=== PATIENT | female | born 1980 | race Caucasian/White ===

== ENCOUNTER → 2020-02-23 07:17 | Outpatient (CLI) | payer OTHER, SELFPAY ==
--- NOTE | 2020-02-23 07:18 | DI.US.S_ITS ---
PROCEDURE: US THYROID INDICATIONS: ENLARGED THYROID TECHNIQUE: Real-time scanning was performed of the thyroid gland, with image documentation. COMPARISON: None. FINDINGS: Right: Thyroid lobe measures 5.7 x 1.7 x 1.6 cm, and is homogeneous in echotexture. Left: Thyroid lobe measures 5.5 x 1.5 x 1.4 cm, and is homogenous in echotexture. Isthmus: 2 mm thick. No hyperemia. Nodule number: 1 Location: Left superior Size: 0.6 x 0.6 x 0.5 cm. Composition: Solid Echogenicity: Hypoechoic Shape: wider than tall. Margins: Smooth Echogenic foci: None Total points: 4 ACR TI-RADS category: TR4, moderately suspicious. Nodule number: 2 Location: Right superior posteriorly Size: 0.8 x 0.7 x 0.6 cm. Composition: Solid Echogenicity: Hypoechoic Shape: wider than tall. Margins: Smooth Echogenic foci: None Total points: 4 ACR TI-RADS category: TR4, moderately suspicious. Nodule number: 3 Location: Right superior anteriorly Size: 0.6 x 0.5 x 0.3 cm. Composition: Solid Echogenicity: Hypoechoic Shape: wider than tall. Margins: Smooth Echogenic foci: None Total points: 4 ACR TI-RADS category: TR4, moderately suspicious. IMPRESSION: Thyroid gland appears to be within normal limits in size. A few small thyroid nodules not meeting criteria for follow-up ultrasound or FNA. ACR TI-RADS definitions and recommendations: TI-RADS 1 (benign): 0 points. FNA not needed. TI-RADS 2 (not suspicious): 2 points. FNA not needed. TI-RADS 3 (mildly suspicious): 3 points. * FNA if 2.5 cm or larger, follow up if 1.5 cm or larger (at 1, 3, and 5 years). TI-RADS 4 (moderately suspicious): 4-6 points. * FNA if 1.5 cm or larger, follow up if 1 cm or larger (at 1, 2, 3, and 5 years). TI-RADS 5 (highly suspicious): 7 points or more. * FNA if 1 cm or larger, follow up if 0.5 cm or larger (every year for 5 years). Dictated by: Aquilino Benavides M.D. on 02/23/2020 at 9:44 Approved by: Aquilino Benavides M.D. on 02/23/2020 at 9:49
== END ==
PROVIDERS: Family Provider Family Medicine; PCP Registered Nurse; Referring Provider Registered Nurse; Visit Provider Registered Nurse
DX: E04.2 Nontoxic multinodular goiter (principal)
CPT/HCPCS: 76536

== ENCOUNTER → 2020-02-27 10:16 | Outpatient (CLI) | payer OTHER, SELFPAY ==
--- NOTE | 2020-02-27 10:17 | DI.MG.S_ITS ---
BILATERAL DIGITAL SCREENING MAMMOGRAM 3D/2D WITH CAD: 02/27/2020 CLINICAL: Routine screening. Comparison is made to exams dated: 10/31/2018 mammogram and 11/27/2018 mammogram - outside location. The tissue of both breasts is heterogeneously dense. This may lower the sensitivity of mammography. Current study was also evaluated with a Computer Aided Detection (CAD) system. No significant masses, calcifications, or other findings are seen in either breast. There has been no significant interval change. IMPRESSION: NEGATIVE There is no mammographic evidence of malignancy. A 1 year screening mammogram is recommended. This exam was interpreted at Station ID: [id number]. NOTE: For mammograms, a report in lay terms will be sent to the patient. Approximately 15% of breast malignancies will not be visualized mammographically. In the management of a palpable breast mass, a negative mammogram must not discourage biopsy of a clinically suspicious lesion. Electronically Signed By: Chad ibarra/nikos:02/29/2020 09:55:47 letter sent: Normal Exam ACR BI-RADS Category 1: Negative 3341F
== END ==
PROVIDERS: Family Provider Family Medicine; PCP Registered Nurse; Referring Provider Registered Nurse; Visit Provider Registered Nurse
DX: Z12.31 Encounter for screening mammogram for malignant neoplasm of breast (principal)
CPT/HCPCS: 77063; 77067

== ENCOUNTER → 2020-08-05 11:37 | Outpatient (CLI) | payer OTHER, SELFPAY ==
[2020-08-05] MEDS: COVID-19 VACC #1, MRNA(MOD) 100 MCG/0.5 ML VIAL IM (11:44)
== END ==
PROVIDERS: PCP Registered Nurse; Visit Provider Internal Medicine
DX: Z23 Encounter for immunization (principal)
CPT/HCPCS: 0011A; 91301

== ENCOUNTER → 2020-09-02 10:33 | Outpatient (CLI) | payer OTHER, SELFPAY ==
[2020-09-02] MEDS: COVID-19 VACC #2, MRNA(MOD) 100 MCG/0.5 ML VIAL IM (10:41)
== END ==
PROVIDERS: PCP Registered Nurse; Visit Provider Internal Medicine
DX: Z23 Encounter for immunization (principal)
CPT/HCPCS: 0012A; 91301

== ENCOUNTER → 2021-03-24 12:28 | Outpatient (CLI) | payer OTHER, SELFPAY ==
--- NOTE | 2021-03-24 | DI.MG.S_ITS ---
BILATERAL DIGITAL SCREENING MAMMOGRAM 3D/2D WITH CAD: 03/24/2021 CLINICAL: Routine screening. Comparison is made to exams dated: 02/27/2020 mammogram - [facility], 11/27/2018 mammogram, 11/27/2018 ultrasound, and 10/31/2018 mammogram - outside location. The tissue of both breasts is heterogeneously dense. This may lower the sensitivity of mammography. Current study was also evaluated with a Computer Aided Detection (CAD) system. No significant masses, calcifications, or other findings are seen in either breast. There has been no significant interval change. IMPRESSION: NEGATIVE There is no mammographic evidence of malignancy. A 1 year screening mammogram is recommended. This exam was interpreted at Station ID: [id number]. NOTE: For mammograms, a report in lay terms will be sent to the patient. Approximately 15% of breast malignancies will not be visualized mammographically. In the management of a palpable breast mass, a negative mammogram must not discourage biopsy of a clinically suspicious lesion. Electronically Signed By: Addis upton/nikos:03/24/2021 13:28:15 letter sent: Normal Exam ACR BI-RADS Category 1: Negative 3341F
== END ==
PROVIDERS: PCP Registered Nurse; Referring Provider Registered Nurse; Visit Provider Registered Nurse
DX: Z12.31 Encounter for screening mammogram for malignant neoplasm of breast (principal)
CPT/HCPCS: 77063; 77067

== ENCOUNTER → 2021-08-21 08:10 | Outpatient (CLI) | payer OTHER, SELFPAY ==
--- NOTE | 2021-08-21 | DI.US.S_ITS ---
PROCEDURE: US ABDOMEN COMPLETE INDICATIONS: PAIN TECHNIQUE: Real-time scanning was performed of the abdominal and retroperitoneal organs, with image documentation. COMPARISON: [facility], US, ABDOMEN COMPLETE, 07/27/2011, 9:26. FINDINGS: Liver: Liver is normal in size and homogeneous in echotexture. The portal vein is patent. Gallbladder: Within normal limits. Biliary ducts: Intrahepatic bile ducts are non-dilated. Extrahepatic bile duct caliber measures 5.3 mm. Normal is 6-7 mm or less in diameter, or 10 mm or less post-cholecystectomy. Pancreas: Visualized portions of the pancreas are sonographically normal. Spleen: Spleen is normal in size and homogeneous in echotexture. Kidneys: Kidneys are normal in size and echotexture. Right kidney measures 10.3 cm long; left kidney measures 12.3 cm long. No hydronephrosis or nephrolithiasis. No solid masses. Aorta: Visualized aorta is normal in caliber at less than 3 cm. Iliacs: Proximal common iliac arteries are normal in caliber at less than 2.5 cm. IVC: Intrahepatic inferior vena cava is patent. Miscellaneous: No free abdominal fluid. IMPRESSION: No significant abnormality. Dictated by: Oumar Hargrove M.D. on 08/21/2021 at 9:12 Approved by: Oumar Hargrove M.D. on 08/21/2021 at 9:13
== END ==
PROVIDERS: PCP Registered Nurse; Referring Provider Registered Nurse; Visit Provider Registered Nurse
DX: R10.9 Unspecified abdominal pain
CPT/HCPCS: 76700

== ENCOUNTER → 2021-08-23 09:49 | Outpatient (CLI) | payer OTHER, SELFPAY ==
[2021-08-23 11:33] LABS: COVID19 -Nasal RAPID Negative (Negative)
== END ==
PROVIDERS: PCP Registered Nurse; Visit Provider Surgery
DX: Z01.812 Encounter for preprocedural laboratory examination (principal); Z20.822 Contact with and (suspected) exposure to COVID-19
CPT/HCPCS: 87635; C9803

== ENCOUNTER 2021-08-24 09:05 | Day surgery (SDC) | payer OTHER, SELFPAY ==
--- NOTE | 2021-08-24 | PATH_ITS ---
[facility] Accession Number: [id number] . 01 Material submitted: . PART A: duodenum - DUODNEUM PART B: stomach - ANTRUM PART C: stomach - FUNDIC POLYP . 02 Diagnosis: A. Duodenum, Biopsy: Duodenal mucosa with no diagnostic abnormality. Negative for active inflammation, features of sprue, dysplasia, or malignancy. . B. Antrum, Biopsy: Gastric antral and body mucosa with mild chronic inflammation. Negative for Helicobacter organisms by immunohistochemistry. Negative for intestinal metaplasia. Negative for dysplasia or malignancy. . C. Gastric Polyp, Biopsy: Fundic gland polyp. No evidence of Helicobacter organisms on H/E stain. Negative for intestinal metaplasia. Negative for dysplasia or malignancy. MRV 08/29/2021 1350 Local . 02 Electronically signed: . Gabriele Brannon MD, PhD, Pathologist NPI- [id number] . 01 Gross description: . Part A: DUODNEUM: Received in formalin are 3 fragment(s) of bone, soft tissue measuring 0.3 x 0.2 x 0.2 cm to 0.2 x 0.1 x 0.1 cm submitted entirely in 1 cassette(s) Part B: ANTRUM: Received in formalin are 4 fragment(s) of bone, soft tissue measuring 0.4 x 0.2 x 0.1 cm to 0.3 x 0.1 x 0.1 cm submitted entirely in 1 cassette(s) Part C: FUNDIC POLYP: Received in formalin are 2 fragment(s) of bone, soft tissue measuring 0.3 x 0.1 x 0.1 cm to 0.2 x 0.1 x 0.1 cm submitted entirely in 1 cassette(s) /CPE 08/25/2021 0839 Local . 02 Microscopic: . B. An immunohistochemical stain is performed to evaluate for Helicobacter organisms and is negative. The control stain shows appropriate reactivity. . * This test was developed and its performance characteristics determined by [facility]. It has not been cleared or approved by the U.S. Food and Drug Administration. The FDA has determined that such clearance or approval is not necessary. This test is used for clinical purposes. It should not be regarded as investigational or for research. . 02 Pathologist provided ICD-10: R10.13, K29.70, K31.7 . 02 CPT . 254587, 882594, 101267, R78105 Specimen Comment: A courtesy copy of this report has been sent to [phone] Performed at: 01 [facility] [address] [place] [address], [place], [place] [id number] MD Chad Ramires MD Phone: [phone] Performed at: 02 [facility] [address] [place] [id number] MD Heavenly Sotomayor MD Phone: [phone]
[2021-08-24 09:21] VITALS: BP 119/78; PULSE 75; RESP 16; TEMP 36.8; O2SAT 100; BMI 25.1
[2021-08-24] MEDS: LACTATED RINGERS 1,000 ML 84 ML IV (09:44)
--- NOTE | 2021-08-24 10:59 | PM.HP.1 ---
History of Present Illness History of Present Illness Date Patient Seen: 08/24/21 Time Patient Seen: 10:59 Chief complaint: [facility] [place] [place] Narrative: La is here for her EGD. She had her ultrasound which was normal. Patient History Medical History Abdominal pain Acne (~2009) Migraine (~1989) Rosacea (~2014) Vertigo (~2006) Surgical History Anesthesia History of third molar tooth extraction (~1994) Status post rhinoplasty (~1993) Family & Social History Family History Father Age: 73 Cancer High cholesterol Hypertension Grandfather Asthma Mother Age: 71 Thyroid disease Grandfather Cancer Grandmother High cholesterol Stroke Sister Age: 41 Cervical cancer High cholesterol Smoker Mental health problem Social History: household members spouse Tobacco & Substance use: Smoking Status Never smoker alcohol intake current alcohol intake frequency 0-2 drinks per day Substance Use Type does not use Meds Home Medications and Allergies Home Medications Medication Instructions Recorded Confirmed Type levonorgestrel 20 mcg/24 hours (7 52 mg IU QDAY #0 07/19/11 07/19/21 History yrs) 52 mg intrauterine device (Mirena) omeprazole 20 mg capsule,delayed 20 mg PO DAILY #90 cap 06/26/21 08/24/21 Rx release Allergies Allergy/AdvReac Type Severity Reaction Status Date / Time No Known Drug Allergies Allergy Verified 07/19/21 09:31 Exam Vital Signs (past 8 hours): - 08/24/21 09:21 Temperature 98.2 F Pulse Rate 75 Respiratory Rate 16 Blood Pressure 119/78 Pulse Oximetry 100 Oxygen Delivery Method Room Air Const General: healthy appearing Resp Effort & Inspection: normal respiratory effort GI Palpation: soft Assessment & Plan Assessment and plan (1) Abdominal pain: Qualifiers: Abdominal location: epigastric Qualified Code(s): R10.13 - Epigastric pain Status: Chronic Plan Plan for EGD. We reviewed the risks and benefits and she would like to proceed. COVID-19 COVID-19 status: Negative Result date/Date tested (Pos, Neg/Pending): 08/23/21 Time Spent With Patient Critical Care time: I spent a total of [] minutes of critical care time on this patient's care today; this time is exclusive of procedural time.
[2021-08-24] MEDS: ONDANSETRON 4 MG/2 ML INJ IV (11:01)
[2021-08-24] MEDS: LIDOCAINE 4% SOLN 50 ML 20 ML TOP (11:02)
[2021-08-24] MEDS: fentaNYL 250 MCG/5 ML INJ IV (11:17)
[2021-08-24] MEDS: MIDAZOLAM 5 MG/5 ML VIAL IV (11:17)
--- NOTE | 2021-08-24 11:17 | PM.OP.EGD ---
Operative Date/Time/Diagnoses Date of procedure: 08/24/21 Time of procedure: 11:17 Pre-op diagnosis: Dyspepsia Post-op diagnosis: same Procedure & Clinicians Study performed: Esophagogastroduodenoscopy Same procedure as scheduled: Yes Surgeon: Dylon Bcekwith Procedure Notes SCOAP/Timeout: Done Procedure in detail: A timeout was performed. A bite blocked was placed. The patient was positioned in the left lateral decubitus position. The endoscope was inserted through the bite block and passed through the esophagus and stomach and into the duodenum. The duodenal mucosa appeared normal. Random biopsies were taken from the 2nd portion of the duodenum. The scope was withdrawn into the duodenal bulb and no abnormalities were noted. The scope was withdrawn into the stomach. The antral mucosa appeared normal. Random biopsies were taken from the antrum. The scope was retroflexed and no hiatal hernia was noted. There was a small polyp in the fundus which was removed with a cold forceps. The scope was withdrawn into the esophagus and no abnormalities were noted of the distal esophagus. The remainder of the esophagus was normal. The scope was withdrawn. The patient was awakened and brought to recovery. Sedation minutes: 11 Post-procedure Recommendations: Will call with biopsy results Disposition: PACU
[2021-08-24 11:21] VITALS: BP 116/77; PULSE 65; RESP 15; TEMP 36.8; O2SAT 97
[2021-08-24 11:25] VITALS: BP 123/81; PULSE 80; RESP 11; O2SAT 97
[2021-08-24 11:30] VITALS: BP 117/83; PULSE 67; RESP 14; O2SAT 96
[2021-08-24 11:36] VITALS: BP 118/76; PULSE 67; RESP 16; TEMP 36.2; O2SAT 99
== END 2021-08-24 11:43 | disposition home or self-care (01) ==
PROVIDERS: PCP Family Medicine; Referring Provider Surgery; Visit Provider Surgery
PROC: 0DJ08ZZ Inspection of Upper Intestinal Tract, Via Natural or Artificial Opening Endoscopic (ICD-10-PCS; CPT 43235; principal; 2021-08-24 10:15)
DX: K29.50 Unspecified chronic gastritis without bleeding (principal); K31.7 Polyp of stomach and duodenum
CPT/HCPCS: 43239; 99152; J2250; J2405; J3010

== ENCOUNTER → 2021-10-27 08:00 | Outpatient (CLI) | payer OTHER, SELFPAY ==
[2021-10-27 08:13] LABS: Hematocrit 40.1 % (36-46); Hemoglobin 13.9 g/dL (12.0-16.0); Mean Corpuscular HGB Conc 34.7 % (30-36); Mean Corpuscular Hemoglobin 30.4 PG (26-34); Mean Corpuscular Volume 87.7 fL (80-100); Platelet Count 332 X10^3/uL (150-400); Red Blood Cell Count 4.57 X10^6/uL (4.0-5.2); Red Cell Distribution Width 12.6 % (11.6-14.8)
[2021-10-27 09:53] LABS: Alanine Aminotransferase 14 IU/L (<35); Albumin 4.2 g/dL (3.5-5.0); Albumin Globulin Ratio 1.5 (1.0-2.8); Alkaline Phosphatase 44 U/L (38-126); Aspartate Aminotransferase 21 IU/L (14-36); BUN Creatinine Ratio 15.7 (6-22); Bilirubin Total 0.6 mg/dL (0.2-1.3); Blood Urea Nitrogen 14 mg/dL (7-17); Calcium 9.1 mg/dL (8.4-10.2); Carbon Dioxide 28 mmol/L (22-32); Chloride 104 mmol/L (98-107); Cholesterol 182 mg/dL (140-199); Estimated Glomerular Filt Rate > 60 mL/min (>60); Globulin 2.8 g/dL (1.7-4.1); Glucose 95 mg/dL (70-100); HDL Cholesterol 57 mg/dL (40-60); LDL Cholesterol Calculated 111 mg/dL (<100); Potassium 4.1 mmol/L (3.4-5.1); Sodium 139 mmol/L (137-145); Triglycerides 68 mg/dL (35-150)
[2021-10-27 09:54] LABS: HEMOLYSIS < 15 (0-50)
[2021-10-27 10:05] LABS: TSH w/ Reflex to FT4 0.78 uIU/mL (0.47-4.68)
== END ==
PROVIDERS: PCP Registered Nurse Diabetes Educator; Referring Provider Registered Nurse Diabetes Educator; Visit Provider Registered Nurse Diabetes Educator
DX: Z00.00 Encounter for general adult medical examination without abnormal findings (principal)
CPT/HCPCS: 36415; 80053; 80061; 84443; 85027

== ENCOUNTER → 2022-03-28 07:36 | Outpatient (CLI) | payer OTHER, SELFPAY ==
--- NOTE | 2022-03-28 07:38 | DI.MG.S_ITS ---
BILATERAL DIGITAL SCREENING MAMMOGRAM 3D/2D WITH CAD: 03/28/2022 CLINICAL: Routine screening. Comparison is made to exams dated: 03/24/2021 mammogram, 02/27/2020 mammogram - [facility], and 11/27/2018 mammogram - outside location. Both breasts are extremely dense, which lowers the sensitivity of mammography (category d />75% glandular tissue). Current study was also evaluated with a Computer Aided Detection (CAD) system. No significant masses, calcifications, or other findings are seen in either breast. There has been no significant interval change. IMPRESSION: NEGATIVE There is no mammographic evidence of malignancy. A 1 year screening mammogram is recommended. This exam was interpreted at Station ID: [id number]. NOTE: For mammograms, a report in lay terms will be sent to the patient. Approximately 15% of breast malignancies will not be visualized mammographically. In the management of a palpable breast mass, a negative mammogram must not discourage biopsy of a clinically suspicious lesion. Electronically Signed By: Nathalie good/nikos:03/28/2022 10:40:57 letter sent: Normal Exam ACR BI-RADS Category 1: Negative 3341F
== END ==
PROVIDERS: PCP Registered Nurse Diabetes Educator; Referring Provider Registered Nurse Diabetes Educator; Visit Provider Registered Nurse Diabetes Educator
DX: Z12.31 Encounter for screening mammogram for malignant neoplasm of breast (principal)
CPT/HCPCS: 77063; 77067

== ENCOUNTER → 2023-01-30 09:15 | Outpatient (CLI) | payer OTHER, SELFPAY ==
--- NOTE | 2023-01-30 09:16 | DI.RAD.S_ITS ---
PROCEDURE: XR ELBOW LT MIN 3V INDICATIONS: left elbow pain TECHNIQUE: 3 views of the elbow were acquired. COMPARISON: None. FINDINGS: Bones: No fractures or dislocations. No suspicious bony lesions. Soft tissues: No elbow joint effusion. No suspicious soft tissue calcifications. IMPRESSION: No acute osseous abnormalities. Dictated by: Oswald Zavala M.D. on 01/30/2023 at 13:35 Approved by: Oswald Zavala M.D. on 01/30/2023 at 13:36
== END ==
PROVIDERS: PCP Registered Nurse Diabetes Educator; Referring Provider Registered Nurse Diabetes Educator; Visit Provider Registered Nurse Diabetes Educator
DX: M25.522 Pain in left elbow (principal)
CPT/HCPCS: 73080

== ENCOUNTER → 2023-03-11 09:05 | Outpatient (CLI) | payer OTHER, SELFPAY ==
[2023-03-11 09:41] LABS: Hematocrit 41.7 % (36-46); Hemoglobin 14.4 g/dL (12.0-16.0); Mean Corpuscular HGB Conc 34.4 % (30-36); Mean Corpuscular Hemoglobin 30.4 PG (26-34); Mean Corpuscular Volume 88.5 fL (80-100); Platelet Count 351 X10^3/uL (150-400); Red Blood Cell Count 4.72 X10^6/uL (4.0-5.2); Red Cell Distribution Width 12.9 % (11.6-14.8); White Blood Cell Count 4.7 X10^3/uL (4.5-11.0)
[2023-03-11 10:02] LABS: Alanine Aminotransferase 16 IU/L (<35); Albumin 4.5 g/dL (3.5-5.0); Albumin Globulin Ratio 1.6 (1.0-2.8); Alkaline Phosphatase 48 U/L (38-126); Aspartate Aminotransferase 21 IU/L (14-36); BUN Creatinine Ratio 14.6 (6-22); Bilirubin Total 0.6 mg/dL (0.2-1.3); Blood Urea Nitrogen 13 mg/dL (7-17); Calcium 10.2 mg/dL (8.4-10.2); Carbon Dioxide 26 mmol/L (22-32); Chloride 102 mmol/L (98-107); Cholesterol 211 mg/dL (140-199); Estimated Glomerular Filt Rate > 60 mL/min (>60); Globulin 2.8 g/dL (1.7-4.1); Glucose 107 mg/dL (70-100); HDL Cholesterol 69 mg/dL (40-60); HEMOLYSIS < 15 (0-50); LDL Cholesterol Calculated 129 mg/dL (<100); Potassium 4.6 mmol/L (3.4-5.1); Sodium 135 mmol/L (137-145); Total Protein 7.3 g/dL (6.3-8.2); Triglycerides 64 mg/dL (35-150)
[2023-03-11 10:33] LABS: TSH w/ Reflex to FT4 0.92 uIU/mL (0.47-4.68)
== END ==
PROVIDERS: PCP Registered Nurse Diabetes Educator; Referring Provider Registered Nurse Diabetes Educator; Visit Provider Registered Nurse Diabetes Educator
DX: Z00.00 Encounter for general adult medical examination without abnormal findings (principal)
CPT/HCPCS: 36415; 80053; 80061; 84443; 85027

== ENCOUNTER → 2023-04-18 08:10 | Outpatient (CLI) | payer OTHER, SELFPAY ==
--- NOTE | 2023-04-18 08:11 | DI.MG.S_ITS ---
BILATERAL DIGITAL DIAGNOSTIC MAMMOGRAM 3D/2D: 04/18/2023 CLINICAL: Palpable right breast lump by physician. Comparison is made to exams dated: 03/28/2022 mammogram, 03/24/2021 mammogram, and 02/27/2020 mammogram - [facility]. Both breasts are heterogeneously dense, which may obscure small masses (category c / 51-75% glandular tissue). No significant masses, calcifications, or other findings are seen in either breast. No mammographic abnormality in the upper outer quadrant at 10 o'clock corresponding to provider area of clinical palpable concern. IMPRESSION: INCOMPLETE: NEEDS ADDITIONAL IMAGING EVALUATION No mammographic evidence of malignancy. Recommend further evaluation of provider area of clinical concern with targeted breast ultrasound, which will immediately follow this exam. Based on the Tyrer Cuzick model (a risk assessment model) the patient's lifetime risk is 12.2% and her 10 year risk is 2.2%. According to the ACR, ACS, and NCCN guidelines, an annual breast MRI exam along with mammogram is recommended if the patient's lifetime risk is 20% or greater. This exam was interpreted at Station ID: [id number]. NOTE: For mammograms, a report in lay terms will be sent to the patient. Approximately 15% of breast malignancies will not be visualized mammographically. In the management of a palpable breast mass, a negative mammogram must not discourage biopsy of a clinically suspicious lesion. Electronically Signed By: Nilda Johnson M.D., PH.D eb/:04/18/2023 09:38:33 ACR BI-RADS Category 0: Incomplete 3340F
--- NOTE | 2023-04-18 08:11 | DI.US.S_ITS ---
LIMITED ULTRASOUND OF RIGHT BREAST: 04/18/2023 CLINICAL: Patient returns today to evaluate a focal asymmetry in the right breast. Comparison is made to exams dated: 04/18/2023 mammogram, 03/28/2022 mammogram, 03/24/2021 mammogram, 02/27/2020 mammogram - [facility], 11/27/2018 mammogram, and 11/27/2018 ultrasound - outside location. Color flow and real-time ultrasound of the right breast 10 o'clock region were performed. No sonographic abnormality is seen in the area of provider clinical concern along the 10 o'clock axis in the right breast. IMPRESSION: NEGATIVE No sonographic abnormality in the area of provider clinical concern. No mammographic or targeted sonographic evidence of malignancy. Recommend routine annual mammogram screening in 1 year. Clinical follow-up is also recommended, and further management of palpable abnormalities or other focal signs or symptoms should be based on the results of clinical evaluation. If palpable abnormality or other concerning symptom persists or progresses, further clinical evaluation should be considered. Findings and recommendations were conveyed to the patient during today's evaluation. This exam was interpreted at Station ID: [id number]. Electronically Signed By: Nilda Johnson M.D., PH.D eb/:04/18/2023 09:48:57 letter sent: Clinical Evaluation Ultrasound BI-RADS: 1 Negative
--- NOTE | 2023-04-18 08:11 | DI.US.S_ITS ---
PROCEDURE: US PELVIC COMPLETE INDICATIONS: IUD strings not seen TECHNIQUE: Real-time scanning was performed of the pelvic organs, with image documentation. Additional endovaginal scanning was necessary due to incomplete visualization of the adnexal and endometrial structures by transabdominal scanning. COMPARISON: [facility], , PELVIC COMPLETE, 05/07/2014, 12:26. FINDINGS: Uterus: Uterus is anteverted and normal in size at 7.5 x 3.9 x 4.6 cm. The endometrium measures 4 mm combined thickness. An intrauterine device is identified within the endometrial cavity and appears appropriately positioned. There is a midline, anterior intramural uterine fibroid measuring 0.7 x 0.8 x 0.4 cm. Nabothian cysts are noted. Ovaries: The right ovary measures 3.6 x 2.6 x 2.5 cm, with a calculated ovarian volume of 11.9 cc. The left ovary measures 4.0 x 1.7 x 2.2 cm, with a calculated ovarian volume of 8.0 cc. The ovaries have a normal sonographic appearance. Less than 12 follicles can be seen in each ovary. No adnexal masses are seen. Other: No pathologic free abdominal or pelvic fluid. IMPRESSION: Pelvis without acute sonographic abnormalities. An intrauterine device is in place and appears to be appropriately positioned within the endometrial cavity. Intramural uterine fibroid measuring 0.8 cm in size. We strive to produce accurate, complete, and clear reports of imaging services. To assist us in improving patient care, this report was composed using standard report templates and voice recognition software. Therefore, it may contain abnormal punctuation, insertions and/or omissions. Occasional wrong-word or sound-alike substitutions may occur. Though we review the report and make efforts to correct it, we do recommend that the report be read carefully in proper context to recognize any text inaccuracies. Dictated by: Jae Flores M.D. on 04/18/2023 at 10:19 Approved by: Jae Flores M.D. on 04/18/2023 at 10:23
== END ==
PROVIDERS: PCP Registered Nurse Diabetes Educator; Referring Provider Registered Nurse Diabetes Educator; Visit Provider Registered Nurse Diabetes Educator
DX: N63.10 Unspecified lump in the right breast, unspecified quadrant (principal); T83.32XA Displacement of intrauterine contraceptive device, initial encounter; D25.1 Intramural leiomyoma of uterus; R92.2 Inconclusive mammogram
CPT/HCPCS: 76642; 76830; 76856; 77066; G0279

== ENCOUNTER 2024-04-23 08:59 | Day surgery (SDC) | payer OTHER, SELFPAY ==
--- NOTE | 2024-04-23 | PATH_ITS ---
[facility] Accession Number: [id number] No. of containers..01 Tissue . 01 Material submitted: . colon - SIGMOID COLON POLYP . 01 Diagnosis: SIGMOID COLON POLYP, BIOPSY: Polypoid colonic mucosa with benign lymphoid aggregate. No dysplasia or neoplasia identified. MRV 04/27/2024 1553 Local . 01 Electronically signed: . Elly Pappas MD, Pathologist NPI- [id number] . 01 Gross description: . Received in formalin with two patient identifiers and sigmoid colon polyp, is a single bone soft tissue fragment, 0.6 cm in greatest dimension, submitted in A1. ([id number]) /MRV 04/24/2024 1315 Local . 01 Pathologist provided ICD-10: K63.89 . 01 CPT . 494601 Specimen Comment: A courtesy copy of this report has been sent to [phone] Performed at: 01 [place] [address], [place], [place] [id number] MD Chad Ramires MD Phone: [phone]
[2024-04-23 09:25] VITALS: BP 134/87; PULSE 83; RESP 16; TEMP 36.3; O2SAT 99
--- NOTE | 2024-04-23 09:41 | PM.HP.1 ---
History of Present Illness History of Present Illness Date Patient Seen: 04/23/24 Time Patient Seen: 09:41 Chief complaint: Colonoscopy Narrative: La is a 44-year-old woman here for a colonoscopy. She has never had a colonoscopy before. No known family history of colon cancer [facility] Medical History Dyslipidemia Functional dyspepsia Abdominal pain Vertigo (~2006) Migraine (~1989) Rosacea (~2014) Acne (~2009) Surgical History Anesthesia History of third molar tooth extraction (~1994) Status post rhinoplasty (~1993) Family History Father Age: 75 Cancer High cholesterol Hypertension Grandfather Asthma Mother Age: 73 Thyroid disease Grandfather Cancer Grandmother High cholesterol Stroke Sister Age: 43 Cervical cancer High cholesterol Smoker Mental health problem Social History household members: spouse Smoking Status: Never smoker alcohol intake: current Meds Home Medications and Allergies Home Medications Medication Instructions Recorded Confirmed Type levonorgestrel 21 mcg/24 hr (up to 52 mg IU QDAY ##0 07/19/11 06/17/23 History 8 years) 52 mg intrauterine device (Mirena) azelaic acid 15 % topical gel 1 applic topical BID 04/01/23 06/17/23 History amitriptyline 10 mg tablet 20 mg (2 x 10 mg) PO BEDTIME #180 03/17/24 04/23/24 Rx tabs omeprazole 20 mg capsule,delayed 20 mg PO DAILY GERD #90 caps 03/17/24 04/23/24 Rx release sodium,potassium,mag sulfates 17.5 See Rx Instructions PO .COMPLEX 03/19/24 Rx gram-3.13 gram-1.6 gram oral soln #354 mL (Suprep Bowel Prep Kit) Allergies Allergy/AdvReac Type Severity Reaction Status Date / Time No Known Drug Allergies Allergy Verified 04/23/24 09:19 Exam Vital Signs (past 8 hours): - 04/23/24 09:25 Temperature 97.3 F L Pulse Rate 83 Respiratory Rate 16 Blood Pressure 134/87 Pulse Oximetry 99 Oxygen Delivery Method Room Air Oxygen Delivery Method Room Air Const General: healthy appearing Assessment & Plan Assessment and plan (1) Colon cancer screening: Status: Acute Plan We reviewed the risks and benefits of colonoscopy for colon cancer screening and she would like to proceed. Time-Based Coding :: [TOTAL MINUTES] spent with patient and on the chart (including review of chart, obtaining history, exam, reviewing outside data, placing orders, documenting exam and treatment plan, and counseling patient) on [DATE].
--- NOTE | 2024-04-23 10:54 | PM.OP.COLON ---
Operative Date/Time/Diagnoses Date of procedure: 04/23/24 Time of procedure: 10:54 Pre-op diagnosis: Colon cancer screening Post-op diagnosis: same Procedure & Clinicians Study performed: Colonoscopy Same procedure as scheduled: Yes Surgeon: Dylon Beckwith Procedure Notes Procedure in detail: Surgeon: Dylon Beckwith MD Anesthesia: Lester Cho CRNA Procedure: The patient was brought to the endoscopy suite, placed in left lateral decubitus position. The patient was connected to monitoring devices. A time-out was performed. Sedation was administered. Once the patient was adequately sedated, a digital rectal exam was performed and was normal. The scope was then inserted and advanced to the cecum where the appendiceal orifice was identified and photographed. The scope was then slowly withdrawn over greater than 6 minutes. The mucosa was thoroughly inspected. There was a 4 mm polyp in the distal sigmoid colon removed with a cold snare. The scope was retroflexed in the rectum. No other abnormalities were identified. The scope was straightened and removed. The patient was awakened and brought to recovery. Scope withdrawal time: 11 minutes Sedation time: 17 minutes EBL: 2 mL Findings: Small sigmoid colon polyp Post-procedure Disposition: PACU
[2024-04-23 10:56] VITALS: BP 122/80; PULSE 76; RESP 14; TEMP 36.3; O2SAT 99
[2024-04-23 11:01] VITALS: BP 114/82; PULSE 80; RESP 12; TEMP 36.3; O2SAT 99
[2024-04-23 11:09] VITALS: BP 113/78; PULSE 79; RESP 11; TEMP 36.3; O2SAT 99
== END 2024-04-23 11:24 | disposition home or self-care (01) ==
PROVIDERS: PCP Registered Nurse Diabetes Educator; Referring Provider Surgery; Visit Provider Surgery
PROC: 0DJD8ZZ Inspection of Lower Intestinal Tract, Via Natural or Artificial Opening Endoscopic (ICD-10-PCS; CPT 45378; principal; 2024-04-23 10:00)
DX: Z12.11 Encounter for screening for malignant neoplasm of colon (principal); K63.5 Polyp of colon
CPT/HCPCS: 45385; J2704

== ENCOUNTER → 2024-04-28 08:55 | Outpatient (CLI) | payer OTHER, SELFPAY ==
[2024-04-28 10:21] LABS: Hematocrit 42.1 % (36-46); Hemoglobin 14.2 g/dL (12.0-16.0); Mean Corpuscular HGB Conc 33.7 % (30-36); Mean Corpuscular Hemoglobin 30.1 PG (26-34); Mean Corpuscular Volume 89.5 fL (80-100); Platelet Count 410 X10^3/uL (150-400); Red Cell Distribution Width 12.7 % (11.6-14.8); White Blood Cell Count 4.6 X10^3/uL (4.5-11.0)
[2024-04-28 10:36] LABS: Alanine Aminotransferase 15 IU/L (<35); Albumin 4.5 g/dL (3.5-5.0); Albumin Globulin Ratio 1.7 (1.0-2.8); Alkaline Phosphatase 58 U/L (38-126); Aspartate Aminotransferase 22 IU/L (14-36); BUN Creatinine Ratio 11.7 (6-22); Bilirubin Total 0.4 mg/dL (0.2-1.3); Blood Urea Nitrogen 12 mg/dL (7-17); Calcium 9.6 mg/dL (8.4-10.2); Carbon Dioxide 29 mmol/L (22-32); Chloride 104 mmol/L (98-107); Cholesterol 204 mg/dL (140-199); Estimated Glomerular Filt Rate > 60 mL/min (>60); Globulin 2.6 g/dL (1.7-4.1); Glucose 97 mg/dL (70-100); HDL Cholesterol 59 mg/dL (40-60); HEMOLYSIS < 15 (0-50); LDL Cholesterol Calculated 131 mg/dL (<100); Potassium 4.4 mmol/L (3.4-5.1); Sodium 138 mmol/L (137-145); Total Protein 7.1 g/dL (6.3-8.2); Triglycerides 72 mg/dL (35-150)
[2024-04-28 11:04] LABS: TSH w/ Reflex to FT4 0.89 uIU/mL (0.47-4.68)
== END ==
PROVIDERS: PCP Registered Nurse Diabetes Educator; Referring Provider Registered Nurse Diabetes Educator; Visit Provider Registered Nurse Diabetes Educator
DX: Z01.419 Encounter for gynecological examination (general) (routine) without abnormal findings (principal); E78.5 Hyperlipidemia, unspecified; R73.01 Impaired fasting glucose
CPT/HCPCS: 36415; 80053; 80061; 83036; 84443; 85027

== ENCOUNTER → 2024-05-14 08:03 | Outpatient (CLI) | payer OTHER, SELFPAY ==
--- NOTE | 2024-05-14 08:05 | DI.MG.S_ITS ---
BILATERAL DIGITAL SCREENING MAMMOGRAM 3D/2D WITH CAD: 05/14/2024 CLINICAL: Routine screening. Comparison is made to exams dated: 04/18/2023 mammogram, 03/28/2022 mammogram, and 03/24/2021 mammogram - [facility]. The breasts are heterogeneously dense, which may obscure small masses (category c / 51-75% glandular tissue). Current study was also evaluated with a Computer Aided Detection (CAD) system. No significant masses, calcifications, or other findings are seen in either breast. There has been no significant interval change. IMPRESSION: NEGATIVE There is no mammographic evidence of malignancy. A 1 year screening mammogram is recommended. Based on the Tyrer Cuzick model (a risk assessment model) the patient's lifetime risk is 12.3% and her 10 year risk is 2.4%. According to the ACR, ACS, and NCCN guidelines, an annual breast MRI exam along with mammogram is recommended if the patient's lifetime risk is 20% or greater. This exam was interpreted at Station ID: [id number]. NOTE: For mammograms, a report in lay terms will be sent to the patient. Approximately 15% of breast malignancies will not be visualized mammographically. In the management of a palpable breast mass, a negative mammogram must not discourage biopsy of a clinically suspicious lesion. Electronically Signed By: Jae [email or web address]:05/14/2024 12:03:03 letter sent: Normal Exam ACR BI-RADS Category 1: Negative
== END ==
PROVIDERS: PCP Registered Nurse Diabetes Educator; Referring Provider Registered Nurse Diabetes Educator; Visit Provider Registered Nurse Diabetes Educator
DX: Z12.31 Encounter for screening mammogram for malignant neoplasm of breast (principal); R92.333 Mammographic heterogeneous density, bilateral breasts
CPT/HCPCS: 77063; 77067